=== PATIENT | female | born 1990 | race American Indian/Alaskan Native ===

== ENCOUNTER 2016-10-15 13:03 | Emergency (ER) | payer MEDICAID, OTHER ==
--- NOTE | 2016-10-15 13:26 | Emergency Department Report ---
Entered by JADA POON, acting as scribe for ANA MONCADA NP. Stated Complaint: SOB/HEART RACING/DIZZY/PELVIC PAIN Time Seen by Provider: 10/15/16 13:11 - HPI History of Present Illness: Pt is a 26 y.o. female with a PMHx including G1:P1:Ab0 who presents to ED for evaluation of a several day hx of intermittent, mild SOB with associated dizziness and intermittent, 9/10 suprapubic pain that switches from the left to the right. She additionally reports a two week hx of nausea. Pt denies improvement in her suprapubic pain with ibuprofen. She does not report vaginal bleeding, chest pain, headache, or syncope. LMP approximately one month ago. She states that she does not think she is , but might be. - ROS Review of Systems: Positive for SOB, dizziness, suprapubic pain, and nausea Negative for VB, CP, STEARNS, or syncope - Exam Vital Signs: Vital Signs 10/15/16 13:13 Temperature 98.7 F Pulse Rate 92 H Respiratory 18 Rate Blood Pressure 128/85 O2 Sat by Pulse 100 Oximetry Physical Exam: Constitutional: Well-developed, well-nourished, NAD. Pulmonary: CTAB. No wheezing or crackles. No respiratory distress. Abdominal: Soft, non-tender. LLQ ttp Neuro: A&Ox3 MSE screening note: Focused history and physical exam performed. Due to findings the following was ordered: Orders: Labs, including an hCG, and an EKG ED Disposition for MSE Condition: Stable This documentation as recorded by the scribe,JADA POON,accurately reflects the service I personally performed and the decisions made by CORAL gongora TRACY M, NP.
[2016-10-15 13:37] LABS: Basophils % (Auto) 0.7 % (0.0-1.8); Hematocrit 37.4 % (30.3-42.9); Hemoglobin 12.6 gm/dl (10.1-14.3); Mean Corpuscular HGB Conc 34 % (30-34); Mean Corpuscular Hemoglobin 28 pg (28-32); Mean Corpuscular Volume 82 fl (79-97); Platelet Count 191 K/mm3 (140-440); Red Blood Count 4.57 M/mm3 (3.65-5.03); Red Cell Distribution Width 15.1 % (13.2-15.2)
[2016-10-15 13:51] LABS: Alanine Aminotransferase 16 units/L (7-56); Albumin 4.1 g/dL (3.9-5); Albumin/Globulin Ratio 1.1 %; Alkaline Phosphatase 51 units/L (35-129); Anion Gap 17 mmol/L; BUN/Creatinine Ratio 17.14; Blood Urea Nitrogen 12 mg/dL (7-17); Calcium 9.5 mg/dL (8.4-10.2); Carbon Dioxide 23 mmol/L (22-30); Chloride 102.9 mmol/L (98-107); Glucose 95 mg/dL (65-100); Potassium 3.9 mmol/L (3.6-5.0); Sodium 139 mmol/L (137-145); Total Protein 7.9 g/dL (6.3-8.2)
[2016-10-15 14:53] LABS: Bacteria,Urine 1+ /HPF (Negative); Bilirubin,Urine NEG (Negative); Blood,Urine NEG (Negative); Ketones,Urine NEG (Negative); Leukocyte Esterase,Urine LG (Negative); Nitrite,Urine NEG (Negative); Protein,Urine <15 mg/dL mg/dL (Negative); Urobilinogen,Urine < 2.0 mg/dL (<2.0)
--- NOTE | 2016-10-15 21:39 | Emergency Department Report ---
HPI - General Chief Complaint: Dyspnea/Respdistress Time Seen by Provider: 10/15/16 13:11 - HPI HPI: Room 36\\ The patient is a 26-year-old female presenting with a chief complaint of vaginal discharge and and itching. The patient states she does not want to tell me the "main reason" she came to the hospital because she does not wish to wait and just wants to be treated for her "bacterial infection. " We'll the patient states for the past 2 days she has had itching in her groin associated with a malodorous vaginal discharge. Patient denies dysuria or hematuria. Patient denies any history of fever Location: Genitourinary Duration: 2 days Quality: Pruritic Severity: Moderate Modifying factors: [see above] Context: [see above] Mode of transportation: The patient is driving ED Past Medical Hx - Past Medical History Previous Medical History?: No - Surgical History Past Surgical History?: No - Family History Family history: no significant - Social History Smoking Status: Never Smoker Substance Use Type: None (denies illicit drug use) - Medications Home Medications: Home Medications Medication Instructions Recorded Confirmed Last Taken Type Docusate Sodium [Colace CAP] 100 mg PO DAILY PRN #30 capsule 02/04/13 03/16/13 Unknown Rx Ferrous Sulfate [Feosol 325 MG tab] 325 mg PO BID #60 tablet 02/04/13 03/16/13 Unknown Rx Fluconazole [Diflucan] 150 mg PO QDAY #1 tablet 03/16/13 Unknown Rx Paliperidone (Nf) [Invega] 3 mg PO DAILY 03/16/13 03/16/13 Unknown History metroNIDAZOLE [Flagyl] 500 mg PO BID #14 tablet 03/16/13 Unknown Rx Sulfamethoxazole/Trimethoprim 1 each PO BID #14 tablet 10/15/16 Unknown Rx [Bactrim DS TAB] ED Review of Systems ROS: Stated complaint: SOB/HEART RACING/DIZZY/PELVIC PAIN Other details as noted in HPI Comment: All other systems reviewed and negative Constitutional: denies: chills, fever Eyes: denies: eye pain, eye discharge, vision change ENT: denies: ear pain, throat pain Respiratory: no symptoms reported. denies: shortness of breath, wheezing Cardiovascular: denies: chest pain, palpitations Endocrine: no symptoms reported Gastrointestinal: denies: abdominal pain, nausea, diarrhea Genitourinary: discharge. denies: dysuria, abnormal menses Musculoskeletal: denies: back pain, joint swelling, arthralgia Skin: denies: rash, lesions Neurological: denies: headache, weakness, paresthesias Psychiatric: denies: anxiety, depression Hematological/Lymphatic: denies: easy bleeding, easy bruising Physical Exam - Physical Exam Vital Signs: Vital Signs 10/15/16 13:13 Temperature 98.7 F Pulse Rate 92 H Respiratory 18 Rate Blood Pressure 128/85 O2 Sat by Pulse 100 Oximetry Physical Exam: GENERAL: The patient is well-developed well-nourished female lying on stretcher not appearing to be in acute distress. [] HEENT: Normocephalic. Atraumatic. Extraocular motions are intact. Patient has moist mucous membranes. NECK: Supple. Trachea midline CHEST/LUNGS: There is no respiratory distress noted. HEART/CARDIOVASCULAR: Regular. There is no tachycardia. There is no gallop rub or murmur. ABDOMEN: Abdomen is soft, nontender. Patient has normal bowel sounds. There is no abdominal distention. SKIN: There is no rash. There is no edema. There is no diaphoresis. NEURO: The patient is awake, alert, and oriented. The patient is cooperative. The patient has normal speech MUSCULOSKELETAL: There is no evidence of acute injury. PELVIC: Malodorous scant white discharge present in vaginal vault ED Course Vital Signs 10/15/16 13:13 Temperature 98.7 F Pulse Rate 92 H Respiratory 18 Rate Blood Pressure 128/85 O2 Sat by Pulse 100 Oximetry ED Medical Decision Making - Lab Data Result diagrams: 10/15/16 13:23 10/15/16 13:23 Laboratory Tests 10/15/16 10/15/16 10/15/16 13:23 13:23 13:23 WBC 5.0 RBC 4.57 Hgb 12.6 Hct 37.4 MCV 82 MCH 28 MCHC 34 RDW 15.1 Plt Count 191 Lymph % (Auto) 36.2 H [place] % (Auto) 10.2 H Eos % (Auto) 2.0 Baso % (Auto) 0.7 Lymph # 1.8 [place] # 0.5 Eos # 0.1 Baso # 0.0 Seg Neutrophils % 50.9 Seg Neutrophils # 2.5 Sodium 139 Potassium 3.9 Chloride 102.9 Carbon Dioxide 23 Anion Gap 17 BUN 12 Creatinine 0.7 Estimated GFR > 60 BUN/Creatinine Ratio 17.14 Glucose 95 Calcium 9.5 Total Bilirubin 0.20 AST 18 ALT 16 Alkaline Phosphatase 51 Total Protein 7.9 Albumin 4.1 Albumin/Globulin Ratio 1.1 Lipase HCG, Qual Negative Urine Color Urine Turbidity Urine pH Ur Specific [place] Urine Protein Urine Glucose (UA) Urine Ketones Urine Blood Urine Nitrite Urine Bilirubin Urine Urobilinogen Ur Leukocyte Esterase Urine WBC (Auto) Urine RBC (Auto) U Epithel Cells (Auto) Urine Bacteria (Auto) 10/15/16 10/15/16 13:23 14:17 WBC RBC Hgb Hct MCV MCH MCHC RDW Plt Count Lymph % (Auto) [place] % (Auto) Eos % (Auto) Baso % (Auto) Lymph # [place] # Eos # Baso # Seg Neutrophils % Seg Neutrophils # Sodium Potassium Chloride Carbon Dioxide Anion Gap BUN Creatinine Estimated GFR BUN/Creatinine Ratio Glucose Calcium Total Bilirubin AST ALT Alkaline Phosphatase Total Protein Albumin Albumin/Globulin Ratio Lipase 36 HCG, Qual Urine Color Yellow Urine Turbidity Clear Urine pH 6.0 Ur Specific [place] 1.013 Urine Protein <15 mg/dl Urine Glucose (UA) Neg Urine Ketones Neg Urine Blood Neg Urine Nitrite Neg Urine Bilirubin Neg Urine Urobilinogen < 2.0 Ur Leukocyte Esterase Lg Urine WBC (Auto) 2.0 Urine RBC (Auto) 1.0 U Epithel Cells (Auto) 6.0 Urine Bacteria (Auto) 1+ - Differential Diagnosis bacterial vaginosis, vaginal candidiasis, gonorrhea and chlamydia, urethrit Critical care attestation.: If time is entered above; I have spent that time in minutes in the direct care of this critically ill patient, excluding procedure time. ED Disposition Clinical Impression: UTI (urinary tract infection), Vaginal discharge Disposition: TO HOME OR SELFCARE Is pt being admited?: No Does the pt Need Aspirin: No Condition: Stable Instructions: Urinary Tract Infection in Women (ED) Additional Instructions: Return to the emergency department immediately should you develop worsening symptoms, fever, inability to tolerate food or liquid or any other concerns. Prescriptions: Sulfamethoxazole/Trimethoprim [Bactrim DS TAB] 1 each PO BID #14 tablet Referrals: PRIMARY CARE [Primary Care Provider] - 3-5 Days Time of Disposition: 21:59
[2016-10-15] MEDS ORDERED: ROCEPHIN IM ONE (21:42)
[2016-10-15] MEDS ORDERED: ZITHROMAX PO ONE (21:42)
[2016-10-15] MEDS ORDERED: XYLOCAINE 1% MPF 5 mL INFILTRATI ONE (21:42)
[2016-10-15 22:54] VITALS: BP 122/81
== END 2016-10-15 22:10 | disposition home or self-care (01) ==
LOC: ED 13:03
DX: N39.0 Urinary tract infection, site not specified (principal); N89.8 Other specified noninflammatory disorders of vagina
CPT/HCPCS: 36415; 80053; 81001; 83690; 84703; 85025; 87210; 87591; 93005; 93010; 96372; 99283; J0696

== ENCOUNTER 2016-12-04 08:34 | Emergency (ER) | payer SELFPAY ==
[2016-12-04 09:40] LABS: Bilirubin,Urine NEG (Negative); Blood,Urine NEG (Negative); Ketones,Urine NEG (Negative); Leukocyte Esterase,Urine TR (Negative); Nitrite,Urine NEG (Negative); Protein,Urine <15 mg/dL mg/dL (Negative); Urobilinogen,Urine < 2.0 mg/dL (<2.0)
--- NOTE | 2016-12-04 11:00 | Emergency Department Report ---
HPI - General Chief Complaint: Upper Respiratory Infection Time Seen by Provider: 12/04/16 10:18 - HPI HPI: Patient is a 26-year-old female with no prominent medical history presents to ED complaining of throat pain, yellow productive coughing and generalized muscle pain 3 days. Patient states that she is taking TheraFlu with no relief. Patient also states that she has some whitish malodorous vaginal discharge that she has noticed since Friday. Patient states she is intimate with her boyfriend and mother. She denies chest pain, shortness of breath, abdominal pain, bowel movement irregularity disease, headache, blurry vision, dizziness or any other problems ED Past Medical Hx - Past Medical History Previous Medical History?: No - Surgical History Past Surgical History?: No - Social History Smoking Status: Never Smoker Substance Use Type: Non Opiate Pain, Other - Medications Home Medications: Home Medications Medication Instructions Recorded Confirmed Last Taken Type Docusate Sodium [Colace CAP] 100 mg PO DAILY PRN #30 capsule 02/04/13 03/16/13 Unknown Rx Ferrous Sulfate [Feosol 325 MG tab] 325 mg PO BID #60 tablet 02/04/13 03/16/13 Unknown Rx Fluconazole [Diflucan] 150 mg PO QDAY #1 tablet 03/16/13 Unknown Rx Paliperidone (Nf) [Invega] 3 mg PO DAILY 03/16/13 03/16/13 Unknown History metroNIDAZOLE [Flagyl] 500 mg PO BID #14 tablet 03/16/13 Unknown Rx Sulfamethoxazole/Trimethoprim 1 each PO BID #14 tablet 10/15/16 Unknown Rx [Bactrim DS TAB] Azithromycin [Zithromax] 250 mg PO DAILY #6 tablet 12/04/16 Unknown Rx Ibuprofen [Motrin] 800 mg PO Q8HR PRN #30 tablet 12/04/16 Unknown Rx Promethazine /Codeine 5 ml PO Q6H PRN #60 udc 12/04/16 Unknown Rx [Phenergan/Codeine 6.25-10 mg/5Ml] ED Review of Systems ROS: Stated complaint: FLU LIKE SYSTEM Other details as noted in HPI Constitutional: denies: chills, fever Eyes: denies: eye pain, eye discharge, vision change ENT: throat pain. denies: ear pain, dental pain, hearing loss, congestion Respiratory: cough. denies: shortness of breath, wheezing Cardiovascular: denies: chest pain, palpitations Endocrine: no symptoms reported Gastrointestinal: denies: abdominal pain, nausea, vomiting, diarrhea Genitourinary: frequency, discharge. denies: urgency, dysuria, hematuria, dyspareunia Musculoskeletal: myalgia. denies: back pain, joint swelling, arthralgia Skin: denies: rash, lesions Neurological: denies: headache, weakness, paresthesias Psychiatric: denies: anxiety, depression Hematological/Lymphatic: denies: easy bleeding, easy bruising Physical Exam - Physical Exam Vital Signs: Vital Signs 12/04/16 08:47 Temperature 100.2 F H Pulse Rate 103 H Respiratory 22 Rate Blood Pressure 113/78 O2 Sat by Pulse 100 Oximetry Physical Exam: GENERAL: Alert and oriented x3, no apparent distress, Normal Gait, atraumatic. HEAD: Head is normocephalic and a-traumatic. EARS: symetrical, atraumatic, non tender, ear canal clear and moderate cerumen, tympanic membrance non inflamed. gross auditory nml bilaterally. NOSE: Nose symetrical, Nontender,Nares appeared normal. MOUTH:Mouth is well hydrated and without lesions. Tonsils nonerythematous or swollen, Uvula midline, Tongue not elevated. Mucous membranes are moist. Posterior pharynx clear, no exudate or lesions. Patent airways. NECK: Supple. Non edematous, No lymphadenopathy or thyromegaly. No C-spine tenderness LUNGS: Symetrical with respiration, No wheezing, no rales or crackles, CTAB. HEART: S1, S2 present, regular rate and rhythm without murmur, no rubs, no gallops. Non tender to palpation ABDOMEN: No organomegaly was noted,Positive bowel sounds, soft, and non- distended. . Nontender to palpation on all Quadrants, NO CVA tenderness. BACK: Full range of motion, no spinal tenderness, nontender to palpation. GENITOURINARY: External genitalia without erythema, exudate or discharge. Vaginal vault is with moderate discharge. Cervix is of normal color without lesion. Cervical os is closed. No bleeding noted. Uterus is noted to be of normal size and nontender. No cervical motion tenderness. No masses are palpated. The adnexa are without masses or tenderness. EXTREMITIES/MUSCULOSKELETAL: No cyanosis, clubbing, rash, lesions or edema. Full ROM bilaterally. UE/LE Pulses 2+ bilaterally. LE and UE 5+ strength bilaterally SKIN: Warm and dry, No lesions, No ulceration or induration present. ED Course Vital Signs 12/04/16 08:47 Temperature 100.2 F H Pulse Rate 103 H Respiratory 22 Rate Blood Pressure 113/78 O2 Sat by Pulse 100 Oximetry ED Medical Decision Making - Radiology Data Radiology results: report reviewed, image reviewed Fluoro Time In Minutes: Chest 2 views: History: Fever/chest pain with cough. Findings: Normal cardiomediastinal silhouette. Trachea is midline. No consolidation, pneumothorax or pleural effusion. Impression: No acute cardiopulmonary findings. Transcribed By: PTP Dictated By: ZHENG BAIG MD Electronically Authenticated By: ZHENG BAIG MD Signed Date/Time: 12/04/16 1112 - Medical Decision Making 26-year-old female presents with upper respiratory tract infection ED course: Urinalysis, chest x-ray, rapid strep test, urine test all obtained. Results shows as above. Discussed findings with the patient. The patient was given administered Tylenol with codeine, Flagyl and ED. Discussed the patient to follow up with histology specialist as well as primary care physician Discussed symptomatic relief [id number] and increase daily vitamins as well as fluid intake Vital signs are stable patient is in no acute distress. - Differential Diagnosis pneumonia, UTI, , flu Critical care attestation.: If time is entered above; I have spent that time in minutes in the direct care of this critically ill patient, excluding procedure time. ED Disposition Clinical Impression: Bacterial vaginitis URI (upper respiratory infection) Qualifiers: URI type: unspecified URI Qualified Code(s): J06.9 - Acute upper respiratory infection, unspecified Disposition: DC-01 TO HOME OR SELFCARE Is pt being admited?: No Does the pt Need Aspirin: No Condition: Stable Instructions: Bacterial Vaginosis (ED), Upper Respiratory Infection (ED) Additional Instructions: Vitamin C as needed for immunity Take [id number] symptomatically relief. Take medications as prescribed. If worsened symptoms this return to ED Prescriptions: Azithromycin [Zithromax] 250 mg PO DAILY #6 tablet Ibuprofen [Motrin] 800 mg PO Q8HR PRN #30 tablet PRN Reason: Pain Promethazine /Codeine [Phenergan/Codeine 6.25-10 mg/5Ml] 5 ml PO Q6H PRN #60 udc PRN Reason: cough Referrals: PRIMARY CARE, [Primary Care Provider] - 3-5 Days JOSEFA PALOMINO MD [Referring] - 3-5 Days [facility] [Outside] - 3-5 Days [facility] [Outside] - 3-5 Days [facility] [Outside] - 3-5 Days Forms: Accompanied Note, STI Treatment and Prevention, Work/School Release Form (ED) Time of Disposition: 12:40
--- NOTE | 2016-12-04 11:16 | XRay Report ---
Chest 2 views: History: Fever/chest pain with cough. Findings: Normal cardiomediastinal silhouette. Trachea is midline. No consolidation, pneumothorax or pleural effusion. Impression: No acute cardiopulmonary findings.
[2016-12-04] MEDS ORDERED: FLAGYL PO ONE (11:54)
[2016-12-04] MEDS ORDERED: DELTASONE PO ONE (11:54)
[2016-12-04] MEDS ORDERED: TYLENOL/CODEINE PO ONE (11:54)
[2016-12-04 13:04] VITALS: BP 120/77
== END 2016-12-04 13:15 | disposition home or self-care (01) ==
LOC: ED 08:34
DX: N76.0 Acute vaginitis (principal); J06.9 Acute upper respiratory infection, unspecified; Z88.8 Allergy status to other drugs, medicaments and biological substances
CPT/HCPCS: 71020; 81001; 81025; 87116; 87210; 87430; 87591; 99284; J7512